=== PATIENT | female | born 1950 | race Caucasian/White ===

== ENCOUNTER → 2018-03-13 | Outpatient (CLI) | payer MEDICARE | END | disposition home or self-care (01) | LOC: CFH 10:00 | PROVIDERS: ATTEND Internal Medicine | DX: R79.0 Abnormal level of blood mineral (principal); I12.9 Hypertensive chronic kidney disease with stage 1 through stage 4 chronic kidney disease, or unspecified chronic kidney disease; N18.1 Chronic kidney disease, stage 1; M79.642 Pain in left hand; M81.0 Age-related osteoporosis without current pathological fracture; E34.9 Endocrine disorder, unspecified; Z78.9 Other specified health status | CPT/HCPCS: 76700 ==

== ENCOUNTER 2018-07-20 10:04 | Day surgery (SDC) | payer MEDICARE ==
[~2018-07-20] VITALS: Ht 152.4 cm; Wt 66.7 kg
[~2018-07-20 10:04] MED LIST: LOSA50TA7 PO; RISE35TA3 PO
[2018-07-20 10:24] VITALS: BP 154/91
[2018-07-20] MEDS ORDERED: hydrALAzine 20 MG/ML, 1ML IV PRN (11:00)
[2018-07-20] MEDS ORDERED: METOCLOPRAMIDE 5 MG/ML, 2ML IV PRN (11:00)
[2018-07-20] MEDS ORDERED: METOPROLOL 1 MG/ML, 5ML IV PRN (11:00)
[2018-07-20] MEDS ORDERED: HYDROmorphone 1 MG/ML, 1ML IV PRN (11:00)
[2018-07-20] MEDS ORDERED: ONDANSETRON ODT 8 MG PO ONE (11:00)
[2018-07-20] MEDS ORDERED: OXYcodone 5 MG/5 ML ORAL.SOL UDC PO PRN (11:00)
[2018-07-20] MEDS ORDERED: LABETALOL 5MG/ML, 20ML IV PRN (11:00)
[2018-07-20] MEDS ORDERED: MEPERIDINE/PF 25MG/0.5ML IVPush PRN (11:00)
[2018-07-20] MEDS ORDERED: DIPHENHYDRAMINE 50 MG/ML, 1ML IVPush PRN (11:00)
[2018-07-20] MEDS ORDERED: ALBUTEROL SULFATE 2.5 MG/3 ML NPPB PRN (11:00)
[2018-07-20] MEDS ORDERED: LORazepam 2 MG/ML, 1ML IVPush PRN (11:00)
[2018-07-20] MEDS ORDERED: PROCHLORPERAZINE 5 MG/ML, 2ML IV PRN (11:00)
[2018-07-20] MEDS ORDERED: DIAZEPAM 5 MG/ML, 2ML IVPush PRN (11:00)
[2018-07-20] MEDS ORDERED: ACETAMINOPHEN 500 MG TABLET PO ONE (11:00)
[2018-07-20] MEDS ORDERED: MIDAZOLAM 1 MG/ML, 2ML IV PRN (11:00)
[2018-07-20] MEDS ORDERED: EPHEDRINE 50 MG/ML, 1ML IVPush PRN (11:00)
[2018-07-20] MEDS ORDERED: LACTATED RINGERS 1,000 ML IV SCH (11:00)
[2018-07-20] MEDS ORDERED: MORPHINE SULFATE 4 MG/ML, 1ML IVPush PRN (11:00)
[2018-07-20] MEDS ORDERED: GABAPENTIN 300 MG CAPSULE PO ONE (11:00)
[2018-07-20] MEDS ORDERED: FENTANYL PF 100 MCG/2ML ONE ×3 (11:28→14:06)
[2018-07-20] MEDS ORDERED: DEXAMETHASONE 4 MG/ML, 1ML ONE ×2 (11:29)
[2018-07-20] MEDS ORDERED: MIDAZOLAM 1 MG/ML, 2ML ONE (11:29)
[2018-07-20] MEDS ORDERED: ROCURONIUM 10MG/ML,5ML ONE (11:30)
[2018-07-20] MEDS ORDERED: LIDOCAINE-MPF 2% ,5ML ONE ×2 (11:30)
[2018-07-20] MEDS ORDERED: SUCCINYLCHOLINE 20 MG/ML, 10ML ONE (11:31)
[2018-07-20] MEDS ORDERED: PROPOFOL 10 MG/ML, 20ML ONE (11:31)
[2018-07-20] MEDS ORDERED: THROMBIN 5,000 UNIT VIAL TP ONE (11:37)
[2018-07-20] MEDS ORDERED: INDIGO CARMINE 0.8%, 5ML ONE (11:37)
[2018-07-20] MEDS ORDERED: NEOMY/POLYMYXIN B GU IRR. 1 ML IRRIG ONE (11:37)
[2018-07-20] MEDS ORDERED: LIDOCAINE 1%-EPI 1:100K, 30ML ONE (11:37)
[2018-07-20] MEDS ORDERED: FUROSEMIDE 20 MG/2 ML ONE (13:06)
[2018-07-20] MEDS ORDERED: OXYcodone 5 MG/5 ML ORAL.SOL UDC ONE (14:06)
[2018-07-20] MEDS ORDERED: METOCLOPRAMIDE 5 MG/ML, 2ML ONE (14:12)
[2018-07-20] MEDS: FENTANYL PF 100 MCG/2ML IV PRN ×2 (14:13→14:23)
== END 2018-07-20 18:37 | disposition home or self-care (01) ==
LOC: OUT 10:04
PROVIDERS: ATTEND Obstetrics & Gynecology
DX: N81.4 Uterovaginal prolapse, unspecified (principal); N88.8 Other specified noninflammatory disorders of cervix uteri; I10 Essential (primary) hypertension; Z98.51 Tubal ligation status; Z98.890 Other specified postprocedural states
CPT/HCPCS: 57265; 57283; 58260; 88305; J0330; J1100; J1940; J2250; J2704; J2765; J3010; J3490; J7120; Q0162

== ENCOUNTER → 2019-03-05 | Outpatient (CLI) | payer MEDICARE ==
[~2019-03-05] MED LIST changes: +LOSA50TA14 PO; -LOSA50TA7 PO; +RISE35TA PO; -RISE35TA3 PO
== END | disposition home or self-care (01) ==
LOC: CFH 09:06
PROVIDERS: ATTEND Internal Medicine
DX: K76.89 Other specified diseases of liver (principal)
CPT/HCPCS: 76700